=== PATIENT | female | born 1940 | race Caucasian/White ===

== ENCOUNTER 2022-02-28 07:22 | Emergency (ER) | payer OTHER ==
[2022-02-28] MEDS ORDERED: TETANUS & DIPHTHERIA TOX,ADULT 0.5 ML VIAL ONE (07:43)
--- NOTE | 2022-02-28 08:23 | RAD REPORT ---
EXAM DESCRIPTION: RAD - Hand Right 3 View - 02/28/2022 8:08 am CLINICAL HISTORY: Right hand pain status post injury status post cat bite FINDINGS: No acute fracture or dislocation seen. Foreign body is not visualized. The bones are osteoporotic. Sideplate and screws affix an old radial fracture. Mild to moderate narrowing involves DIP, PIP and MCP joints.
[2022-02-28] MEDS ORDERED: NEOMYCIN/BAC/POLY OPTH 3.5GM ONE (08:27)
--- NOTE | 2022-02-28 08:34 | EDPHYS ---
Physician Documentation [facility] Name: Milly Monge Age: 81 yrs Sex: Female : 1940 Arrival Date: 02/28/2022 Time: 07:23 Bed 7 Private MD: Keyshawn Gale ED Physician Uday Moreira HPI: 02/28 08:35 This 81 yrs old Female presents to ER via Ambulatory with complaints of Cat scratch. kdr 08:35 The patient was bitten on the dorsum of right hand, by a cat, for an unknown reason, at [facility]. Onset: The symptoms/episode began/occurred suddenly, last night. Animal information: The animal is known and can be quarantined. Secondary to the bite the patient reports pain. Associated signs and symptoms: The patient has no apparent associated signs or symptoms. Severity of symptoms: At their worst the symptoms were mild, in the emergency department the symptoms are unchanged. The patient has not experienced similar symptoms in the past. The patient has not recently seen a physician. The patient's states that she was bitten approximately 11 PM last night by their house cat. The cat is known and up-to-date on shots and otherwise healthy. Historical: - Allergies: 07:39 No Known Allergies; db - Home Meds: 07:39 None [Active]; db - PMHx: 07:39 None; db - PSHx: 07:39 None; db - Immunization history:: Adult Immunizations unknown, Client reports having NOT received the Covid vaccine. - Social history:: Smoking status: Patient denies any tobacco usage or history of. Patient/guardian denies using alcohol, tobacco products. ROS: 08:35 Constitutional: Negative for fever, chills, and weight loss. kdr 08:35 MS/extremity: Positive for abrasion, pain, tenderness, of the dorsum of right hand. Exam: 08:35 Constitutional: This is a well developed, well nourished patient who is awake, alert, kdr and in no acute distress. 08:35 Musculoskeletal/extremity: The patient has some minor skin tears and punctures to the dorsum of her right hand. Bleeding is controlled.. Vital Signs: 07:35 BP 159 / 97; Pulse 68; Resp 16; Temp 97.8; Pulse Ox 96% ; Weight 40.82 kg; Height 5 ft. db 4 in. (162.56 cm); 08:55 BP 175 / 64; Pulse 63; Resp 16; Pulse Ox 96% ; db 07:35 Body Mass Index 15.45 (40.82 kg, 162.56 cm) db MDM: 08:33 Patient medically screened. kdr 08:35 Data reviewed: vital signs, nurses notes, radiologic studies. Counseling: I had a kdr detailed discussion with the patient and/or guardian regarding: the historical points, exam findings, and any diagnostic results supporting the discharge/admit diagnosis, radiology results, the need for outpatient follow up. 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 Exp: db 10/05/2023. Lot #: [id number]. } Route: IM; Site: right deltoid; 09:00 Follow up: Response: No adverse reaction db Disposition Summary: 02/28/22 08:33 Discharge Ordered Location: Home kdr Problem: new kdr Symptoms: have improved kdr Condition: Stable kdr Diagnosis - Cat bite kdr Followup: kdr - With: Keyshawn Gale - When: 2 - 3 days - Reason: If symptoms return, Further diagnostic work-up, Recheck today's complaints, Continuance of care, Re-evaluation by your physician Discharge Instructions: - Discharge Summary Sheet kdr - Animal Bite, Adult, [id number] kdr Forms: - Medication Reconciliation Form kdr - Thank You Letter kdr - Antibiotic Education kdr Prescriptions: - Amoxicillin 500 mg Oral Capsule - take 1 capsule by ORAL route every 12 hours for 10 days; 20 tablet; Refills: 0, kdr Product Selection Permitted Signatures: Dispatcher [employer] EDMS Uday Moreira MD MD kdr Amber Phipps, RN RN db
--- NOTE | 2022-02-28 08:34 | ER ---
Nurse's Notes [facility] Name: Milly Monge Age: 81 yrs Sex: Female : 1940 Arrival Date: 02/28/2022 Time: 07:23 Bed 7 Private MD: Keyshawn Gale Diagnosis: Cat bite Presentation: 02/28 07:35 Chief complaint: Spouse and/or significant other states: states patient was scratched db by cat late last night. right hand skin tear with bleeding and lacerations noted. Coronavirus screen: Client denies travel out of the [place] in the last 14 days. At this time, the client does not indicate any symptoms associated with coronavirus-19. Ebola Screen: Patient negative for fever greater than or equal to 101.5 degrees Fahrenheit, and additional compatible Ebola Virus Disease symptoms Patient denies exposure to infectious person. Patient denies travel to an Ebola-affected area in the 21 days before illness onset. No symptoms or risks identified at this time. Initial Sepsis Screen: Does the patient meet any 2 criteria? No. Patient's initial sepsis screen is negative. Does the patient have a suspected source of infection? No. Patient's initial sepsis screen is negative. Risk Assessment: Do you want to hurt yourself or someone else? Unable to obtain. Onset of symptoms was February 28, 2022. 07:35 Method Of Arrival: Ambulatory db 07:35 Acuity: JEAN 4 db Triage Assessment: 07:42 General: Appears in no apparent distress. comfortable, Behavior is calm, cooperative, db quiet. Pain: Complains of pain in right hand patient unable to verbalize pain scale or description. Historical: - Allergies: 07:39 No Known Allergies; db - Home Meds: 07:39 None [Active]; db - PMHx: 07:39 None; db - PSHx: 07:39 None; db - Immunization history:: Adult Immunizations unknown, Client reports having NOT received the Covid vaccine. - Social history:: Smoking status: Patient denies any tobacco usage or history of. Patient/guardian denies using alcohol, tobacco products. Screenin:43 Abuse screen: unable to assess. Spouse at bedside and patient unable to answer db questions on her own. Patient answers some questions but not all. Nutritional screening: No deficits noted. Tuberculosis screening: No symptoms or risk factors identified. Fall Risk No fall in past 12 months (0 pts). No secondary diagnosis (0 pts). No IV (0 pts). Ambulatory Aid- None/Bed Rest/Nurse Assist (0 pts). Gait- Normal/Bed Rest/Wheelchair (0 pts) Mental Status- Overestimates/Forgets Limitations (15 pts.). Total Elias Fall Scale indicates No Risk (0-24 pts). Assessment: 07:43 Reassessment: Patient appears in no apparent distress at this time. Patient is alert, db oriented x 3, equal unlabored respirations, skin warm/dry/pink. 07:45 Derm: Skin has skin tears on right hand. db Vital Signs: 07:35 BP 159 / 97; Pulse 68; Resp 16; Temp 97.8; Pulse Ox 96% ; Weight 40.82 kg; Height 5 ft. db 4 in. (162.56 cm); 08:55 BP 175 / 64; Pulse 63; Resp 16; Pulse Ox 96% ; db 07:35 Body Mass Index 15.45 (40.82 kg, 162.56 cm) db ED Course: 07:23 Patient arrived in ED. am2 07:23 Keyshawn Gale is Private Physician. am2 07:31 Uday Moreira MD is Attending Physician. kdr 07:35 Amber Phipps, STEPHANIE is Primary Nurse. db 07:39 Triage completed. db 07:45 Patient has correct armband on for positive identification. Bed in low position. Call db light in reach. Side rails up X 1. 07:45 Pulse ox on. NIBP on. db 07:45 Warm blanket given. db 07:45 right hand cleaned with saline. db 07:45 Dressings: Kerlix X 1; right hand non-adherent dressing x 1 right hand neosporin db applied to right hand. Wound care: to right hand skin tear. 08:00 Arm band placed on Patient placed in an exam room, on a stretcher, on pulse oximetry. db Bandage applied. 08:31 Keyshawn Gale is Referral Physician. kdr 09:02 Patient did not have IV access during this emergency room visit. 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 Exp: db 10/05/2023. Lot #: [id number]. } Route: IM; Site: right deltoid; 09:00 Follow up: Response: No adverse reaction db Medication: 07:43 VIS not applicable for this client. db Outcome: 08:33 Discharge ordered by . kdr 09:01 Discharged to home via wheelchair, with significant other. db 09:01 Condition: stable 09:01 Discharge instructions given to significant other, Instructed on discharge instructions, follow up and referral plans. medication usage, Prescriptions given X 1. 09:03 Patient left the ED. db Signatures: Uday Moreira MD MD [facility] Reta Alejandro Danielle, RN RN db
[2022-03-01 00:58] VITALS: TEMP 97.8; O2SAT 96
[2022-03-01 00:59] VITALS: BP 175/64
== END 2022-02-28 09:03 | disposition home or self-care (01) ==
LOC: ER 07:22
DX: S61.431A Puncture wound without foreign body of right hand, initial encounter (principal); W55.01XA Bitten by cat, initial encounter; Z23 Encounter for immunization
CPT/HCPCS: 90471; 90714; 99284